=== PATIENT | male | born 1955 | race Caucasian/White ===

== ENCOUNTER 2022-04-19 10:29 | Emergency (ER) | payer BC ==
[2022-04-19 11:20] LABS: CORONAVIRUS COVID-19 NAA NEGATIVE (NEGATIVE); INFLUENZA A NAA NEGATIVE (NEGATIVE); INFLUENZA B NAA NEGATIVE (NEGATIVE)
[2022-04-19 11:24] LABS: CARBON DIOXIDE,CO2 28.7 mmol/L (21.0-32.0); POTASSIUM,K 4.7 mmol/L (3.5-5.1)
[2022-04-19] MEDS ORDERED: Aspirin 81 MG Tab.Chew PO ONE (15:31)
[2022-04-19] MEDS ORDERED: Heparin Sodium 5,000 Units/ML Vial IVPUSH ONE (15:32)
[2022-04-19] MEDS ORDERED: Heparin Sodium/0.45% NaCl 500 ML IV SCH (15:45)
[2022-04-19 17:17] VITALS: BP 161/107; PULSE 80
== END 2022-04-19 17:28 ==
LOC: MW.ED 10:29
DX: I21.4 Non-ST elevation (NSTEMI) myocardial infarction (principal); R00.2 Palpitations; I10 Essential (primary) hypertension; J44.9 Chronic obstructive pulmonary disease, unspecified; M19.90 Unspecified osteoarthritis, unspecified site; Z86.16 Personal history of COVID-19; Z88.8 Allergy status to other drugs, medicaments and biological substances; Z79.82 Long term (current) use of aspirin; Z87.891 Personal history of nicotine dependence; Z20.822 Contact with and (suspected) exposure to COVID-19
CPT/HCPCS: 0240U; 36415; 71045; 80053; 83735; 83880; 84443; 84484; 85025; 85610; 85730; 93005; 96365; 99285; A9270; J1644

== ENCOUNTER 2023-12-23 08:30 | Day surgery (SDC) | payer BC ==
[~2023-12-23 08:30] MED LIST: Sodium Chloride 0.9% 10 ML Syringe FLUSH PRN; Sodium Chloride 0.9% 2.5 ML Syringe FLUSH PRN; Sodium Chloride 0.9% 20 ML SDV IV PRN
[2023-12-23] MEDS: Lactated Ringers 1,000 ML IV SCH (09:40)
[2023-12-23] MEDS ORDERED: propofoL 50 ML ONE (10:36)
[2023-12-23] MEDS ORDERED: Propofol 200 MG/20 ML SDV ONE (11:29)
[2023-12-23 12:08] VITALS: BP 139/79; PULSE 74
== END 2023-12-23 12:15 | disposition home or self-care (01) ==
LOC: MW.SDS 08:30
PROVIDERS: ATTEND Surgery
DX: Z12.11 Encounter for screening for malignant neoplasm of colon (principal); R19.5 Other fecal abnormalities; D12.3 Benign neoplasm of transverse colon; D12.8 Benign neoplasm of rectum; K57.30 Diverticulosis of large intestine without perforation or abscess without bleeding; I10 Essential (primary) hypertension; E78.00 Pure hypercholesterolemia, unspecified; I25.10 Atherosclerotic heart disease of native coronary artery without angina pectoris; J44.9 Chronic obstructive pulmonary disease, unspecified; Z87.891 Personal history of nicotine dependence; Z79.82 Long term (current) use of aspirin; Z79.899 Other long term (current) drug therapy
CPT/HCPCS: 45380; 45385; J2704; J7120; 00811